=== PATIENT | female | born 1935 | race Caucasian/White ===

== ENCOUNTER 2023-07-22 16:07 | Emergency (ER) | payer MEDICARE, SELFPAY ==
--- NOTE | ~2023-07-22 | XR_ITS ---
EXAMINATION: XR foot RT min 3V DATE: 07/22/2023 17:07 INDICATION: Right foot pain. TECHNIQUE: 4 views of right foot were obtained. COMPARISON: None. FINDINGS: Bone alignment is normal. No fracture. There is ankylosis of first interphalangeal joint wi th screw fixation. There is flattening of head of second metatarsal, consistent with osteonecrosis (F reiberg's infraction. There is mild osteoarthritis of first and fourth metatarsophalangeal joints. Th ere is osteoarthritis of most of the interphalangeal joints, severe at third distal interphalangeal j oint. There are enthesophytes at the posterior and plantar aspects of calcaneal tuberosity. 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 Reviewed, dictated and finalized at location E. TH EVALUATOR
[2023-07-22 16:16] VITALS: BP 146/81; PULSE 86; RESP 24; TEMP 36.1; O2SAT 96
--- NOTE | 2023-07-22 16:25 | ED.EXTPRO ---
HPI - Extremity Problem General Chief complaint: Extremity Injury, Lower Stated complaint: Right Foot Pain and Swelling Source: patient and RN notes reviewed History of Present Illness HPI Narrative: 87 yo F presents to urgent care with complaints of right foot pain and swelling. Pt reports a chronic pain between her 4th and 5th toes but it got worse about a week ago. Pt states the swelling started 2 days ago. Denies any injury. Denies any fevers, chills, SOB, chest pain, or vomiting. Related Data Home Medications Medication Instructions Recorded Confirmed albuterol sulfate 90 mcg/actuation puff inhalation Q4H PRN sob 07/22/23 aerosol inhaler aspirin 81 mg chewable tablet 81 mg PO DAILY 07/22/23 07/22/23 atorvastatin 80 mg tablet 45 mg PO DAILY 07/22/23 07/22/23 clopidogrel 75 mg tablet 75 mg PO DAILY 07/22/23 07/22/23 fluticasone fur. 200 mcg-umeclid inh inhalation DAILY 07/22/23 62.5 mcg-vilant 25 mcg inhalat.powder (Trelegy Ellipta) furosemide 40 mg tablet 40 mg PO BID 07/22/23 07/22/23 isosorbide mononitrate 60 mg 120 mg PO HS 07/22/23 07/22/23 tablet,extended release 24 hr lisinopril 20 mg tablet 20 mg PO BID 07/22/23 07/22/23 metoclopramide HCl 5 mg tablet 5 mg PO TID 07/22/23 07/22/23 nebivolol 20 mg tablet (Bystolic) 20 mg PO DAILY 07/22/23 07/22/23 omeprazole 20 mg capsule,delayed 20 mg PO DAILY 07/22/23 07/22/23 release potassium chloride 10 mEq 20 meq PO BID 07/22/23 07/22/23 capsule,extended release ranolazine 500 mg tablet,extended 500 mg PO Q12H 07/22/23 07/22/23 release,12 hr warfarin 2.5 mg tablet See Rx Instructions .Route .COMPLEX 07/22/23 07/22/23 Allergies Allergy/AdvReac Type Severity Reaction Status Date / Time Sulfa (Sulfonamide Allergy Rash Verified 07/22/23 17:11 Antibiotics) Review of Systems Review of Systems: CONSTITUTIONAL: Denies fever, chills, or sweats. EYES: Denies visual changes, redness, or discharge. ENT: Denies otalgia and sore throat CARDIOVASCULAR: Denies chest pain, palpitations, or edema. RESPIRATORY: Denies cough or dyspnea. GASTROINTESTINAL: Denies abdominal pain, nausea, vomiting, or diarrhea. GENITOURINARY: Denies dysuria or hematuria. SKIN: Denies rash or itching. MUSCULOSKELETAL: Right foot pain and swelling NEUROLOGIC: Denies headache, numbness, or weakness. Pertinent positives per HPI. PMFSH Comments At the time of my signature, I reviewed and agree with the nursing past medical, surgical, social, and family history. There is no relevant family history pertinent to the patient complaint. Exam Narrative: GENERAL: This is a well-nourished, well-developed patient, in no apparent distress. HEAD: normocephalic, atraumatic. EYES: Sclera clear/white. Vision is grossly intact. EARS: External ears normal, auditory canals clear and without drainage. Hearing grossly intact. NOSE: External nose normal with no obvious nasal discharge, nares without redness, no rhinorrhea. THROAT: Mucous membranes moist, posterior pharynx clear. NECK: Neck supple, non-tender without lymphadenopathy, masses or thyromegaly. CARDIOVASCULAR: Regular rate and rhythm without murmurs, gallops, or rubs. RESPIRATORY: Clear to auscultation. Breath sounds equal bilaterally. No wheezes, rales, or rhonchi. GASTROINTESTINAL: Abdomen soft, non-tender, nondistended. Bowel sounds are active. No hepato-splenomegaly, or palpable masses. No guarding. SKIN: warm, intact with no suspicious lesions or rash, good texture and turgor. NEURO: awake, alert, and oriented to person, place and time. There were no obvious focal neurologic abnormalities. EXTREMITIES: Right foot 3+ pitting edema and tenderness over 4th and 5th metatarsals Course Course Level of Care: Express Care Visit Vital Signs Vital signs: Vital Signs Temperature 97 F L 07/22/23 16:16 Pulse Rate 86 07/22/23 16:16 Respiratory Rate 24 H 07/22/23 16:16 Blood Pressure 146/81 H 07/22/23 16:16 Pulse Oxi
== END 2023-07-22 17:25 | disposition home or self-care (01) ==
PROVIDERS: Emergency Provider Nurse Practitioner Family; PCP Family Medicine
DX: L03.115 Cellulitis of right lower limb (principal); M19.071 Primary osteoarthritis, right ankle and foot; Z79.01 Long term (current) use of anticoagulants; Z79.82 Long term (current) use of aspirin; E78.00 Pure hypercholesterolemia, unspecified; I11.0 Hypertensive heart disease with heart failure; I50.9 Heart failure, unspecified; J44.9 Chronic obstructive pulmonary disease, unspecified; K21.9 Gastro-esophageal reflux disease without esophagitis; I20.9 Angina pectoris, unspecified
CPT/HCPCS: 73630; 99213; G0463